=== PATIENT | male | born 1945 | race Caucasian/White ===

== ENCOUNTER 2022-10-26 15:20 | Emergency (ER) | payer MEDICARE, OTHER ==
[~2022-10-26] VITALS: Ht 185.4 cm; Wt 79.4 kg
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
[2022-10-26 15:58] LABS: BASOPHILS % (AUTO) 0.7 % (0.0-2.0); EOSINOPHILS % (AUTO) 0.7 % (0.0-6.0); HEMATOCRIT 34 % (39-51); HEMOGLOBIN 11.3 g/dL (13.5-17.5); LYMPHOCYTES # (AUTO) 0.6 K/uL (0.8-4.8); LYMPHOCYTES % (AUTO) 24.2 % (20.0-44.0); MEAN CORPUSCULAR HGB CONC 33 g/dl (31.0-36.0); MEAN CORPUSCULAR VOLUME 91 fL (80-96); MONOCYTES # (AUTO) 0.3 K/uL (0.1-1.30); MONOCYTES % (AUTO) 11.6 % (2.0-12.0); NEUTROPHILS # (AUTO) 1.7 K/uL (1.8-8.9); NEUTROPHILS % (AUTO) 62.8 % (43.0-81.0); PLATELET COUNT (AUTO) 190 K/uL (150-450); RED BLOOD CELL COUNT(AUTO) 3.76 MIL/uL (4.5-6.0); WHITE BLOOD COUNT (AUTO) 2.6 K/uL (4.3-11.0)
[2022-10-26 17:37] LABS: CALCIUM, SERUM 8.8 mg/dL (8.5-10.1); CREATININE 0.9 mg/dL (0.6-1.3); POTASSIUM 3.6 mmol/L (3.5-5.1)
--- NOTE | 2022-10-26 17:51 | NUR ---
[facility] TRANSPORT ARRANGED. ETA 60-75MINS PER ALEENA.
[2022-10-26 18:00] LABS: THYROID STIMULATING HORMONE 3.346 uIU/mL (0.358-3.74)
--- NOTE | 2022-10-26 18:07 | NUR ---
NEW [facility] 30 MINS
--- NOTE | 2022-10-26 18:07 | NUR ---
PT REPORT GIVEN TO KIA ZAMORANO INFORMATION ENGINEER AT [facility]
--- NOTE | 2022-10-26 18:58 | NUR ---
EMT AT BEDSIDE TO PICKUP PT; ENDORSEMENT GIVEN
--- NOTE | 2022-10-26 19:15 | NUR ---
Patient discharged to [facility] via [facility] in stable condition accompanied by 3 emt. Written and verbal after care instructions given. Patient verbalizes understanding of instruction.
[2022-10-26 19:18] VITALS: BP 128/75
== END 2022-10-26 19:20 ==
LOC: ER 15:47
DX: S00.01XA Abrasion of scalp, initial encounter (principal); I10 Essential (primary) hypertension; Z88.2 Allergy status to sulfonamides; W01.0XXA Fall on same level from slipping, tripping and stumbling without subsequent striking against object, initial encounter; Y93.89 Activity, other specified; Y92.89 Other specified places as the place of occurrence of the external cause; Y99.8 Other external cause status
CPT/HCPCS: 36415; 70450-TC; 80048-TC; 84443-TC; 85025-TC